=== PATIENT | male | born 1945 | race Caucasian/White ===

== ENCOUNTER 2025-06-01 13:31 | Emergency (ER) | payer MEDICAID ==
[~2025-06-01] VITALS: Ht 175.3 cm; Wt 64.1 kg
[2025-06-01 14:07] VITALS: RESP 16; TEMP 98.1
[2025-06-01 18:16] VITALS: BP 127/61; PULSE 82; O2SAT 96
[2025-06-01] MEDS ORDERED: LACT-373 PO (18:21)
--- NOTE | 2025-06-01 18:21 | Physician Documentation ---
History of Present Illness ~ Chief Complaint: Constipation Stated Complaint: CONSTIPATION Time Seen by MD: 17:43 HPI Patient year old male with history of chronic constipation that is being followed by his primary care provider who has recently referred and he has received a letter to see Dr. Cristiana rivera with Gastroenterology. Patient has tried multiple prescription and [id number] laxative is asking by name for GoLYTELY. Patient states that he has been incarcerated at has had difficulty with having a bowel movement for several years he states that he has loss of abdominal muscles and just feel like it is hard to push out stool. Patient states he has not had a good regular bowel movement in 1 month but does have small pellet bowel movements currently. Patient is able to pass gas. No blood in stool. No nausea or vomiting. Medication Reconciliation Allergies: Coded Allergies: No Known Allergies (Unverified , 06/01/25) Scheduled PRN Lactulose (Lactulose), 30 ML PO QAM PRN for constipation Past Medical History Past Medical History: *GI/HEPATOBILIARY*, Constipation Past Surgical History: noncontributory Lives In: Home Occupation: retired, other Review of Systems All Other Systems at this time: Reviewed and Negative Gastrointestinal: Reports: see HPI Physical Exam Vital Signs: RN Vital Signs have been reviewed: Yes, Temperature: 98.1, Source: Temporal, Heart Rate: 82, Respiratory Rate: 16, BP: 127/61, Pulse Oximetry: 96, Weight: 64.100 Oxygen Flow Rate: 0 Physical Exam General: Alert, no apparent distress. HEENT: PERRL, EOMI, no injection, moist mucous membranes. Neck: Full range of motion. Respiratory: Lungs clear, no respiratory distress. Chest: No accessory muscle use. Cardiovascular: Regular rate and rhythm, no murmurs. Gastrointestinal: Soft, nontender, nondistended. Bowels sounds present. Extremities: Normal range of motion, no deformity. Neurologic: Oriented x4. Psychiatric: Normal mood and affect. Skin: Normal color, warm and dry. No edema, no ecchymosis. Progress Results/Orders Results/Orders Orders - JESSICA NATARAJAN [employer] Abdomen,Single View(Kub) (06/01/25 18:16) Completed Orders - JESSICA NATARAJAN NP Abdomen,Single View(Kub) (06/01/25 18:16) Vital Signs 06/01/25 06/01/25 14:07 18:16 Temp 98.1 Pulse 91 82 Resp 16 B/P (MAP) 146/77 127/61 (83) Pulse Ox 95 96 O2 Flow Rate 0 EKG/XRAY/CT/US/VASC/MRI Abdominal X-Ray : Interpreted By: self Number of Xray Views: 3 VIEW Air-fluid Levels: none Dilated Bowel: none Other Findings: other (Some stool burden noted) Impression: No: bowel obstruction, bowel perforation Additional Comment Interpreted by self awaiting radiology report EXAMINATIONS: Abdominal x-rays - 3 views CLINICAL HISTORY: constipation COMPARISON: None Findings and impression: No discretely dilated small bowel loops or air-fluid levels identified. Large volume stool throughout the colon, mainly in the ascending colon, appears consistent with history of constipation. No definite evidence of pneumoperitoneum. Degenerative changes of the lumbar spine with levo scoliotic curvature. Left hip arthroplasty hardware noted. Arthritic changes of the right hip. Medical Decision Making Findings Patient states he suffered from chronic constipation has strong follow up with primary care and does have a referral to Gastroenterology lactulose prescribed as needed for constipation to have a bowel movement every 2-3 days. Patient is aware of how and when to use medication by follow up with primary care. Other differentials included bowel obstruction, stool impaction with rectal exam indicating normal tone and no impaction. Patient wanted to wait until he was home to take the medication. Diff Dx N/V/D:Considerations: Include: Bowel obstruction, Dehydration, Impaction Departure Time of Disposition: 18:42 Disposition: 01 HOME / SELF CARE / HOMELESS Impression: Primary Impression: Constipation Condition: Stable Discharge Instructions: Constipation, Adult Additional Instructions: Use lactulose as needed to have a bowel movement at least every 2-3 days maintain appointment with Gastroenterology and follow up with your primary care provider in 1 week. Maintain hydration as dehydration is a significant cause for constipation. Referrals: NO PRIMARY CARE PROVIDER (PCP) Prescriptions Lactulose (Lactulose) 10 Gram/15 Ml Solution 30 ML PO QAM PRN for constipation, #500 ML 0 Refills Prov: JESSICA NATARAJAN NP 06/01/25 Education Educated: Patient Educated regarding: diagnosis, treatment, need for follow up Signature Scribe Signature: No Scribe Attestation: The note accurately reflects work and decisions made by me.Jessica MITCHELL 06/01/25 18:54 JESSICA NATARAJAN NP Jun 01, 2025 18:21
--- NOTE | 2025-06-01 18:51 | RADIOLOGY REPORT ---
EXAMINATIONS: Abdominal x-rays - 3 views CLINICAL HISTORY: constipation COMPARISON: None Findings and impression: No discretely dilated small bowel loops or air-fluid levels identified. Large volume stool throughout the colon, mainly in the ascending colon, appears consistent with histo ry of constipation. No definite evidence of pneumoperitoneum. Degenerative changes of the lumbar spine with levo scoliotic curvature. Left hip arthroplasty hardwar e noted. Arthritic changes of the right hip.
== END 2025-06-01 18:53 | disposition home or self-care (01) ==
LOC: ER 13:32
DX: K59.00 Constipation, unspecified (principal)
CPT/HCPCS: 74018; 99283